=== PATIENT | female | born 1945 | race Caucasian/White ===

== ENCOUNTER → 2016-08-15 | Outpatient (CLI) | payer OTHER ==
--- NOTE | 2016-08-15 14:12 | CT ---
CT Brain (Without Contrast) at 1310 hours History: Previous infarcts, worsening dizziness, patient anticoagulated. I63.9, R42. Comparison: MRI brain March 2016 Technique: Axial computed tomographic images of the brain without contrast. Dose reduction technique s were utilized. Findings: Old lacunar infarcts in ventral aspects of bilateral thalami with mild associated [place] n degeneration of the right cerebral peduncle. No acute hemorrhage. Old linear infarct in the right c erebellar hemisphere. Ventricles, cisterns, and sulci are normal without atrophy, hydrocephalus, midl ine shift/herniation, or epidural/subdural hematomas. No acute intraparenchymal hemorrhage, definite infarct, or mass effect. Bone windows demonstrate no displaced fractures. Paranasal sinuses and masto id air cells are clear. Impression: 1. No acute hemorrhage. 2. Old bilateral thalamic lacunar infarcts and old linear infarct right cerebellar hemisphere with Wa [place]lerian degeneration of the right middle cerebral peduncle. 3. No definite acute infarct. 4.Consider MRI of the brain without and with contrast enhancement, if there is continued clinical con cern. Findings and recommendations discussed with Dr. Doug Rivera at 1400 hours today. A Document Only message has been documented for ZACH Portillo in the [employer] Critical Result system on 08/15/2016 14:08, Message ID [id number].
== END ==
LOC: FIMAGING 12:55
PROVIDERS: ATTEND Physician Assistant Medical
DX: R42 Dizziness and giddiness (principal); Z86.73 Personal history of transient ischemic attack (TIA), and cerebral infarction without residual deficits

== ENCOUNTER → 2016-08-18 | Outpatient (CLI) | payer OTHER ==
--- NOTE | 2016-08-18 13:31 | DX ---
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 There is straightening of the cervical spine between C3 and C6 with mild reversal at C2-C3, moderate narrowing of the C3-C4 disk space where there is a mild retrolisthesis, mild spondylolisthesis at C4-C5, 3 mm retrolisthesi s at C5-C6 and mild spondylolisthesis at C6-C7. There is osteoarthritic narrowing of the joint betwee n the anterior ring of C1 and the odontoid process. There is no prevertebral soft tissue swelling. Th ere is nuchal ligament ossification posterior to C5-C6 and the C7 spinous process consistent with rem ote trauma. There is osteoarthritic degenerative change of bilateral facet joints, left greater than right. The patient's head is tilted toward her left. Median sternotomy wires are present. Impression: 1. Multilevel spondylosis, superimposed upon a congenitally small neural canal. 2. Osteoarthritic changes described above.
== END ==
LOC: FIMAGING 12:35
PROVIDERS: ATTEND Internal Medicine
DX: M43.12 Spondylolisthesis, cervical region (principal)

== ENCOUNTER → 2017-02-02 | Outpatient (CLI) | payer OTHER | LOC: BMCIMAGING 14:08 | PROVIDERS: ATTEND Internal Medicine | DX: Z13.820 Encounter for screening for osteoporosis (principal); M81.0 Age-related osteoporosis without current pathological fracture | CPT/HCPCS: G0202 ==

== ENCOUNTER 2017-09-25 13:57 | Emergency (ER) | payer OTHER ==
[2017-09-25] MEDS ORDERED: NS 500 ML IV ONE (15:08)
--- NOTE | 2017-09-25 15:12 | EDPHY ---
H & P Time Seen by Provider: 09/25/17 15:08 HPI/ROS: CHIEF COMPLAINT: Exhaustion HISTORY OF PRESENT ILLNESS: This patient is an anticoagulated (Coumadin) 72 year old female with history of CVA, CAD, and mitral valve repair complaining of exhaustion for three days. She went on a trip last week and was feeling well when she returned on . Monday, she had a mild headache and nausea as well as difficulty sleeping. She did have chills but did not take her temperature. She denies cough, rhinorrhea, or other associated symptoms. Her friend at bedside endorses a lack of appetite, and the patient concurs. The patient has not had much to eat or drink for three days, and thinks she may have had about 6oz of fluid today. Currently, she is feeling better and does not have a headache or nausea. She endorses some fleeting abdominal discomfort a few days ago, now resolved. Additionally, she noted low blood pressure today, which is unusual for her. She denies any resultant deficits from her CVA other than difficulty with depth perception. She did not receive a flu shot this year. No vomiting, diarrhea, chest pain, difficulty breathing, pain in her extremities, or other associated symptoms. REVIEW OF SYSTEMS: A 10 point review of systems was performed and is negative with the exception of the elements mentioned in the history of present illness. Past Medical/Surgical History: Atrial fibrillation Coronary artery disease History of CVA one year ago Valvular heart disease with history of severe [place], s/p mitral valve repair Social History: Friend at bedside. Nonsmoker. Retired. Smoking Status: Never smoked Physical Exam: General Appearance: Alert, pleasant Eyes: Right eye deviated to right. Right pupil 4mm. Left pupil 2mm. No conjunctival pallor or injection ENT, Mouth: Mucous membranes somewhat dry Neck: Normal inspection Respiratory: Lungs are clear to auscultation Cardiovascular: Regular rate and rhythm Gastrointestinal: Abdomen is soft and non-tender Neurological: A&O, nonfocal exam Skin: Warm and dry, no rash Extremities: Nontender, no pedal edema Psychiatric: Mood and affect normal Constitutional: Initial Vital Signs Temperature (C) 36.8 C 09/25/17 14:01 Heart Rate 79 09/25/17 14:01 Respiratory Rate 18 09/25/17 14:01 Blood Pressure 98/60 L 09/25/17 14:01 O2 Sat (%) 95 03/12/18 14:01 O2 Delivery Mode Room Air Allergies/Adverse Reactions: No Known Allergies Allergy (Unverified 01/18/13 08:14) Home Medications: Medication Instructions Recorded Lexapro 09/25/17 Losartan Potassium 09/25/17 Metoprolol Succinate 09/25/17 Warfarin Sodium 09/25/17 Medical Decision Making - Diagnostics EKG Interpretation: EKG interpreted by me reveals sinus rhythm, rate 66, diffuse T wave changes. Interpretation: Abnormal EKG. T wave abnormalities are similar to prior EKG . Imaging Results: Imaging Impressions Chest X-Ray 09/25/17 16:26 Impression: 1. A few fibrotic streaks or subsegmental atelectasis is noted at the left base. Allowing for this, no active cardiopulmonary disease seen. 2. Postoperative changes from previous cardiac valve replacement.. Imaging: I viewed and interpreted images myself ED Course/Re-evaluation: 72 y/o female presents with three day history of weakness and fatigue. Exam unremarkable other than her usual neurologic deficit resultant from her CVA which presents as a dysconjugate gaze and right pupil dilation. Plan for EKG, labs including CBC, chemistries, Troponin, coag panel. Plan to administer 500mL IVF for rehydration. 16:30 Reassessed patient. She is feeling better following IVF administration. She requests a second liter of IVF, which I will provide. 1745: Continues to feel much better, asymptomatic. Ambulates with a steady gait and is not dizzy. Likely viral syndrome and dehydration. No evidence of pneumonia or urinary tract infection. Encouraged her to drink plenty of fluids at home. Return for worsening symptoms or any concerns. Differential Diagnosis: Differential diagnosis includes pyelonephritis, cholecystitis, influenza, cellulitis, pneumonia, abscess, meningitis. - Data Points Laboratory Results: Laboratory Results 09/25/17 15:52 09/25/17 15:52 09/25/17 09/25/17 09/25/17 17:24 15:52 15:52 WBC RBC Hgb Hct MCV MCH MCHC RDW Plt Count MPV Neut % (Auto) Lymph % (Auto) [place] % (Auto) Eos % (Auto) Baso % (Auto) Nucleat RBC Rel Count Absolute Neuts (auto) Absolute Lymphs (auto) Absolute Monos (auto) Absolute Eos (auto) Absolute Basos (auto) Absolute Nucleated RBC Immature Gran % Immature Gran # PT 22.2 SEC H SEC (12.0-15.0) INR 1.94 H (0.83-1.16) Sodium 141 mEq/L mEq/L (135-145) Potassium 4.5 mEq/L mEq/L (3.5-5.2) Chloride 108 mEq/L mEq/L (97-110) Carbon Dioxide 25 mEq/l mEq/l (22-31) Anion Gap 8 mEq/L mEq/L (8-16) BUN 17 mg/dL mg/dL (7-23) Creatinine 0.8 mg/dL mg/dL (0.6-1.0) Estimated GFR > 60 Glucose 121 mg/dL H mg/dL (70-100) Calcium 10.1 mg/dL mg/dL (8.5-10.4) Troponin I 0.017 ng/mL ng/mL (0.000-0.034) Urine Color YELLOW Urine Appearance HAZY Urine pH 5.0 (5.0-7.5) Ur Specific [place] 1.014 (1.002-1.030) Urine Protein NEGATIVE (NEGATIVE) Urine Ketones 1+ H (NEGATIVE) Urine Blood 2+ H (NEGATIVE) Urine Nitrate NEGATIVE (NEGATIVE) Urine Bilirubin NEGATIVE (NEGATIVE) Urine Urobilinogen NEGATIVE EU EU (0.2-1.0) Ur Leukocyte Esterase NEGATIVE (NEGATIVE) Urine RBC 15-25 /hpf H /hpf (0-3) Urine WBC 1-3 /hpf /hpf (0-3) Ur Epithelial Cells TRACE /lpf /lpf (NONE-1+) Hyaline Casts 5-15 /lpf /lpf (0-1) Urine Mucus 1+ /lpf /lpf (NONE-1+) Urine Glucose NEGATIVE (NEGATIVE) 09/25/17 15:52 WBC 8.40 10^3/uL 10^3/uL (3.80-9.50) RBC 4.91 10^6/uL 10^6/uL (4.18-5.33) Hgb 14.5 g/dL g/dL (12.6-16.3) Hct 42.9 % % (38.0-47.0) MCV 87.4 fL fL (81.5-99.8) MCH 29.5 pg pg (27.9-34.1) MCHC 33.8 g/dL g/dL (32.4-36.7) RDW 13.6 % % (11.5-15.2) Plt Count 195 10^3/uL 10^3/uL (150-400) MPV 10.0 fL fL (8.7-11.7) Neut % (Auto) 80.3 % H % (39.3-74.2) Lymph % (Auto) 8.5 % L % (15.0-45.0) [place] % (Auto) 10.4 % % (4.5-13.0) Eos % (Auto) 0.0 % L % (0.6-7.6) Baso % (Auto) 0.4 % % (0.3-1.7) Nucleat RBC Rel Count 0.0 % % (0.0-0.2) Absolute Neuts (auto) 6.76 10^3/uL H 10^3/uL (1.70-6.50) Absolute Lymphs (auto) 0.71 10^3/uL L 10^3/uL (1.00-3.00) Absolute Monos (auto) 0.87 10^3/uL H 10^3/uL (0.30-0.80) Absolute Eos (auto) 0.00 10^3/uL L 10^3/uL (0.03-0.40) Absolute Basos (auto) 0.03 10^3/uL 10^3/uL (0.02-0.10) Absolute Nucleated RBC 0.00 10^3/uL 10^3/uL (0-0.01) Immature Gran % 0.4 % % (0.0-1.1) Immature Gran # 0.03 10^3/uL 10^3/uL (0.00-0.10) PT INR Sodium Potassium Chloride Carbon Dioxide Anion Gap BUN Creatinine Estimated GFR Glucose Calcium Troponin I Urine Color Urine Appearance Urine pH Ur Specific [place] Urine Protein Urine Ketones Urine Blood Urine Nitrate Urine Bilirubin Urine Urobilinogen Ur Leukocyte Esterase Urine RBC Urine WBC Ur Epithelial Cells Hyaline Casts Urine Mucus Urine Glucose Medications Given: Discontinued Medications Sodium Chloride (Ns) 500 mls @ 1,000 mls/hr IV EDNOW ONE PRN Reason: Protocol Stop: 03/12/18 15:37 Last Admin: 09/25/17 17:44 Dose: 500 mls Sodium Chloride (Ns) 1,000 mls @ 0 mls/hr IV ONCE ONE; Wide Open PRN Reason: Protocol Stop: 09/25/17 16:30 Last Admin: 09/25/17 16:35 Dose: 1,000 mls Departure - Departure Disposition: Home, Routine, Self-Care Clinical Impression: Dehydration Condition: Good Instructions: Dehydration (ED) Additional Instructions: Follow up with your primary care provider on Monday for reevaluation. Drink plenty of fluids. Return to the emergency department for fever, chest pain, difficulty breathing, persistent vomiting, or other worsening of condition. Referrals: Nedra Condon MD [Primary Care Provider] - As per Instructions Report Scribed for: Tegan Gutiérrez Report Scribed by: Sandy Gagnon Date of Report: 09/25/17 Time of Report: 15:27 Physician Review and Approval Statement: 09/25/17 15:27 Portions of this note were transcribed by a medical support assistant. I personally performed a history, physical exam, medical decision making, and confirmed accuracy of information the transcribed note.
[2017-09-25 16:07] LABS: PLATELET COUNT 195 10^3/uL (150-400)
[2017-09-25 16:16] LABS: INR 1.94 (0.83-1.16); PROTIME(PATIENT) 22.2 SEC (12.0-15.0)
--- NOTE | 2017-09-25 16:25 | CPEKG ---
Heart Rate: 66 RR Interval: 909 P-R Interval: 171 QRSD Interval: 82 QT Interval: 464 QTC Interval: 487 P [place]: 0 QRS [place]: 46 T Wave [place]: 138 EKG Severity - ABNORMAL ECG - EKG Impression: SINUS RHYTHM EKG Impression: ABNORMAL T, CONSIDER ISCHEMIA, ANT-LAT LEADS EKG Impression: BORDERLINE PROLONGED QT INTERVAL EKG Impression: Similar to EKG dated 03/24/16 Electronically Signed By: Tegan Gutiérrez 25-Sep-2017 23:00:10
[2017-09-25] MEDS ORDERED: NS 1,000 ML IV ONE (16:29)
[2017-09-25 17:39] VITALS: RESP 16
[2017-09-25 18:01] VITALS: BP 122/72; PULSE 85; TEMP 96.8; O2SAT 97
== END 2017-09-25 18:01 | disposition home or self-care (01) ==
DX: E86.0 Dehydration (principal); I25.2 Old myocardial infarction; I25.10 Atherosclerotic heart disease of native coronary artery without angina pectoris; E86.9 Volume depletion, unspecified; Z79.01 Long term (current) use of anticoagulants; Z86.73 Personal history of transient ischemic attack (TIA), and cerebral infarction without residual deficits

== ENCOUNTER → 2018-03-16 | Outpatient (CLI) | payer OTHER | LOC: BMCIMAGING 15:13 | PROVIDERS: ATTEND Internal Medicine | DX: Z13.820 Encounter for screening for osteoporosis (principal); M81.0 Age-related osteoporosis without current pathological fracture; Z78.0 Asymptomatic menopausal state ==

== ENCOUNTER 2018-05-31 12:33 | Emergency (ER) | payer OTHER ==
[2018-05-31] MEDS ORDERED: NS 500 ML IV ONE (13:34)
--- NOTE | 2018-05-31 13:47 | EDPHY ---
H & P Time Seen by Provider: 05/31/18 13:02 HPI/ROS: HPI Confusion. Forgetfulness. 72-year-old female by private vehicle with son and [id number]. The son and daughter long report the patient has had loss of short-term memory greater than usual as well as asking repetitive questions and some generalized confusion since waking up this morning. They report that she has had this to some extent over the last 2-3 weeks but noticed it was much worse this morning. The patient has no complaints. Please see review of systems for further details. She does have a history of a CVA approximately 2 years ago. 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 Otherwise no significant residual neurologic deficits. She is on Coumadin for a mechanical mitral valve and atrial fibrillation. No new medications. ROS: Constitutional: No fever, no chills. No weakness. Eyes: No discharge. No changes in vision. ENT: No sore throat. No nasal congestion or rhinorrhea. Respiratory: No cough. No shortness of breath. Cardiac: No chest pain, no palpitations. Gastrointestinal: No abdominal pain, no vomiting, no diarrhea. Genitourinary: No hematuria. No dysuria or increased frequency with urination. Musculoskeletal: No back pain. No neck pain. No myalgias or arthralgias. Skin: No rashes. Neurological: No headache. No focal weakness or altered sensation. Past medical history: Hypertension, hysterectomy, as above. Social history: Nonsmoker. She ambulates normally and without any assistance, no alcohol. She lives with her son. Physical Exam: General Appearance: Alert, no distress. This patient is responding to questions appropriately and in full sentences. This patient appears well- hydrated and well-nourished. Head: Normocephalic atraumatic. Eyes: 3rd nerve palsy on the right, left pupil is round and reactive to light at 3-2 mm, no pallor or injection. No lid edema, erythema or injection. ENT, Mouth: Mucous membranes are moist. The pharyngeal tissues are unremarkable. No edema or swelling. No asymmetry suggestive of abscess. No erythema or exudates. Respiratory: There are no retractions, lungs are clear to auscultation with good air movement bilaterally. Cardiovascular: Regular rate and rhythm. No murmur. Gastrointestinal: Abdomen is soft and nontender, no masses, bowel sounds normal. No focal tenderness at McBurney's point. No Mcfarland sign. Neurological: Motor sensory function is grossly intact. Cranial nerves are normal except noted. Gait is normal. Cerebellar function, heel to hernández, finger to nose intact. Skin: Warm and dry, no rashes. Musculoskeletal: Neck is supple and nontender. Extremities are symmetrical. All joints range without pain or impingement. Psychiatric: No agitation. No depression. Database: EKG: EKG time is 1:08 p.m.; EKG shows a narrow complex normal sinus rhythm with a ventricular rate of 58. Atrial premature complexes noted. Subtle ST depression V2 through V6. The [place], QRS, QT intervals are within normal limits. There are no ST-T wave changes indicative of ischemic or injury pattern. No evidence of right heart strain. Interpreted by me. Imaging: CT scan of head without contrast: Age-related changes only. Results discussed with staff radiologist Dr. Nickolas Vaughn. Procedures: Emergency department course: Triage vital signs reviewed. She is mildly hypertensive. Vital signs are otherwise normal. An IV was placed. She was placed on a monitor. EKG obtained in triage and reviewed by myself. She was started on IV normal saline with 500 cc to be given over the next hour. Noncontrast CT of the brain will be obtained. Patient and family consent to workup. 2:30 p.m., the patient was re-evaluated, she is resting comfortably at this time. Repeat neurologic Assessment is nonfocal. Results of her emergency department workup were discussed with her and her son and [id number]. I did discuss admission for observation. They do not want to do this at this time. Her urinalysis showed evidence of a probable urinary tract infection. I will start her on Keflex for this. She will follow up with her primary care physician in the next 1-2 days for re-evaluation. They can easily return to the emergency department should her condition worsen. Return to emergency department precautions were thoroughly reviewed with the patient and her son. All of their questions were answered. The patient was discharged home in good condition. Differential Diagnosis: The differential diagnosis on this patient includes but is not limited to advancing dementia, transient amnesia, urinary tract infection. CVA, TIA unlikely. This represents a partial list of diagnoses considered. These considerations are based on history, physical exam, past history, reassessment and diagnostic testing. Smoking Status: Never smoked Constitutional: Initial Vital Signs Temperature (C) 36.8 C 05/31/18 12:33 Heart Rate 64 05/31/18 12:33 Respiratory Rate 18 05/31/18 12:33 Blood Pressure 135/89 H 05/31/18 12:33 O2 Sat (%) 96 05/31/18 12:33 O2 Delivery Mode Room Air Allergies/Adverse Reactions: No Known Allergies Allergy (Unverified 01/18/13 08:14) Home Medications: Medication Instructions Recorded Lexapro 09/25/17 Losartan Potassium 09/25/17 Metoprolol Succinate 09/25/17 Warfarin Sodium 09/25/17 Cephalexin [Keflex (*)] 500 mg PO Q6 5 Days cap 05/31/18 Medical Decision Making - Data Points Laboratory Results: Laboratory Results 05/31/18 13:14 05/31/18 13:14 05/31/18 05/31/18 05/31/18 14:06 13:14 13:14 WBC 5.97 10^3/uL 10^3/uL (3.80-9.50) RBC 4.73 10^6/uL 10^6/uL (4.18-5.33) Hgb 13.8 g/dL g/dL (12.6-16.3) Hct 41.1 % % (38.0-47.0) MCV 86.9 fL fL (81.5-99.8) MCH 29.2 pg pg (27.9-34.1) MCHC 33.6 g/dL g/dL (32.4-36.7) RDW 13.7 % % (11.5-15.2) Plt Count 228 10^3/uL 10^3/uL (150-400) MPV 9.8 fL fL (8.7-11.7) Neut % (Auto) 62.3 % % (39.3-74.2) Lymph % (Auto) 29.8 % % (15.0-45.0) [place] % (Auto) 6.2 % % (4.5-13.0) Eos % (Auto) 1.0 % % (0.6-7.6) Baso % (Auto) 0.5 % % (0.3-1.7) Nucleat RBC Rel Count 0.0 % % (0.0-0.2) Absolute Neuts (auto) 3.72 10^3/uL 10^3/uL (1.70-6.50) Absolute Lymphs (auto) 1.78 10^3/uL 10^3/uL (1.00-3.00) Absolute Monos (auto) 0.37 10^3/uL 10^3/uL (0.30-0.80) Absolute Eos (auto) 0.06 10^3/uL 10^3/uL (0.03-0.40) Absolute Basos (auto) 0.03 10^3/uL 10^3/uL (0.02-0.10) Absolute Nucleated RBC 0.00 10^3/uL 10^3/uL (0-0.01) Immature Gran % 0.2 % % (0.0-1.1) Immature Gran # 0.01 10^3/uL 10^3/uL (0.00-0.10) PT INR APTT Sodium 139 mEq/L mEq/L (135-145) Potassium 4.2 mEq/L mEq/L (3.3-5.0) Chloride 106 mEq/L mEq/L (97-110) Carbon Dioxide 25 mEq/l mEq/l (22-31) Anion Gap 8 mEq/L mEq/L (6-14) BUN 13 mg/dL mg/dL (7-23) Creatinine 0.8 mg/dL mg/dL (0.6-1.0) Estimated GFR > 60 Glucose 117 mg/dL H mg/dL (70-100) Calcium 10.2 mg/dL mg/dL (8.5-10.4) Total Bilirubin 1.1 mg/dL mg/dL (0.1-1.4) Conjugated Bilirubin 0.0 mg/dL mg/dL (0.0-0.5) Unconjugated Bilirubin 1.1 mg/dL mg/dL (0.0-1.1) AST 28 IU/L IU/L (14-46) ALT 32 IU/L IU/L (9-52) Alkaline Phosphatase 51 IU/L IU/L (38-126) Total Protein 6.6 g/dL g/dL (6.3-8.2) Albumin 4.0 g/dL g/dL (3.5-5.0) Urine Color YELLOW Urine Appearance HAZY Urine pH 8.0 H (5.0-7.5) Ur Specific [place] 1.009 (1.002-1.030) Urine Protein NEGATIVE (NEGATIVE) Urine Ketones NEGATIVE (NEGATIVE) Urine Blood 1+ H (NEGATIVE) Urine Nitrate NEGATIVE (NEGATIVE) Urine Bilirubin NEGATIVE (NEGATIVE) Urine Urobilinogen NEGATIVE EU EU (0.2-1.0) Ur Leukocyte Esterase 1+ H (NEGATIVE) Urine RBC 3-5 /hpf H /hpf (0-3) Urine WBC 5-10 /hpf H /hpf (0-3) Ur Epithelial Cells 1+ /lpf /lpf (NONE-1+) Urine Mucus TRACE /lpf /lpf (NONE-1+) Urine Glucose NEGATIVE (NEGATIVE) Salicylates < 1.0 mg/dL L mg/dL (2.0-20.0) Ethyl Alcohol < 10 mg/dL mg/dL (0-10) 05/31/18 13:04 WBC RBC Hgb Hct MCV MCH MCHC RDW Plt Count MPV Neut % (Auto) Lymph % (Auto) [place] % (Auto) Eos % (Auto) Baso % (Auto) Nucleat RBC Rel Count Absolute Neuts (auto) Absolute Lymphs (auto) Absolute Monos (auto) Absolute Eos (auto) Absolute Basos (auto) Absolute Nucleated RBC Immature Gran % Immature Gran # PT 29.3 SEC H SEC (12.0-15.0) INR 2.79 H (0.83-1.16) APTT 39.4 SEC H SEC (23.0-38.0) Sodium Potassium Chloride Carbon Dioxide Anion Gap BUN Creatinine Estimated GFR Glucose Calcium Total Bilirubin Conjugated Bilirubin Unconjugated Bilirubin AST ALT Alkaline Phosphatase Total Protein Albumin Urine Color Urine Appearance Urine pH Ur Specific [place] Urine Protein Urine Ketones Urine Blood Urine Nitrate Urine Bilirubin Urine Urobilinogen Ur Leukocyte Esterase Urine RBC Urine WBC Ur Epithelial Cells Urine Mucus Urine Glucose Salicylates Ethyl Alcohol Medications Given: Discontinued Medications Sodium Chloride (Ns) 500 mls @ 0 mls/hr IV ONCE ONE; Wide Open PRN Reason: Protocol Stop: 05/31/18 13:35 Last Admin: 05/31/18 13:51 Dose: 500 mls Departure - Departure Disposition: Home, Routine, Self-Care Clinical Impression: Forgetfulness, Urinary tract infection Condition: Good Instructions: Mild Cognitive Impairment: New Diagnosis (DC), Urinary Tract Infection in Women (ED) Additional Instructions: Read and follow provided instructions. Follow-up with your primary care physician in 1-2 days for re-evaluation as discussed. Take antibiotic as prescribed for treatment of urinary tract infection. Eat regular meals. Keep well hydrated. Return to the emergency department for worsening symptoms, any new weakness or loss of sensation in her extremities, difficulty speaking or other serious concerns. Referrals: Nedra Condon MD [Primary Care Provider] - As per Instructions Prescriptions: Cephalexin [Keflex (*)] 500 mg PO Q6 5 Days cap
[2018-05-31 13:49] LABS: PLATELET COUNT 228 10^3/uL (150-400)
[2018-05-31 13:49] LABS: INR 2.79 (0.83-1.16); PROTIME(PATIENT) 29.3 SEC (12.0-15.0)
[2018-05-31 14:46] VITALS: BP 126/61
--- NOTE | 2018-05-31 16:10 | CPEKG ---
Test Reason : OPEN Blood Pressure : / mmHG Vent. Rate : 058 BPM Atrial Rate : 058 BPM P-R Int : 200 ms QRS Dur : 096 ms QT Int : 468 ms P-R-T Axes : 101 051 026 degrees QTc Int : 460 ms Sinus rhythm Atrial premature complexes Borderline ST depression, anterolateral leads Confirmed by Frank Fernandez ([id number]) on 05/31/2018 4:09:49 PM Referred By: Confirmed By:Frank Fernandez
== END 2018-05-31 14:57 | disposition home or self-care (01) ==
DX: R41.0 Disorientation, unspecified (principal); G31.84 Mild cognitive impairment of uncertain or unknown etiology; I10 Essential (primary) hypertension; E86.9 Volume depletion, unspecified
CPT/HCPCS: G0480

== ENCOUNTER 2018-06-19 15:08 | Emergency (ER) | payer OTHER ==
--- NOTE | 2018-06-19 15:42 | EDPHY ---
H & P Time Seen by Provider: 06/19/18 15:23 HPI/ROS: HPI Mechanical fall. Left arm injury. 73-year-old female by private vehicle with family. This patient tripped on a crack in the curb, she landed awkwardly on her left arm. She is on Coumadin. She does not think she hit her head. She complains of isolated pain to the proximal aspect of the left arm with any movement active or passive. She denies any loss of sensation or weakness distally. She otherwise has no complaints. ROS: Constitutional: No fever, no chills. No weakness. Eyes: No discharge. No changes in vision. ENT: No sore throat. No nasal congestion or rhinorrhea. Respiratory: No cough. No shortness of breath. Cardiac: No chest pain, no palpitations. Gastrointestinal: No abdominal pain, no vomiting, no diarrhea. Genitourinary: No hematuria. No dysuria or increased frequency with urination. Musculoskeletal: No back pain. No neck pain. As above. Skin: No rashes. Neurological: No headache. No focal weakness or altered sensation. Past medical history: Heart surgery, mitral valve replacement, atrial fibrillation, hypertension, hysterectomy, CVA December of 2015. Social history: Nonsmoker. No alcohol. Here with family. Physical Exam: General Appearance: Alert, no distress. This patient is responding to questions appropriately and in full sentences. This patient appears well- hydrated and well-nourished. Head: Normocephalic atraumatic. Face: Facial bones are stable on palpation. Eyes: Right eye deviated to the right. Right pupil is 4 mm. Left pupil is 2 mm. Both are minimally reactive to direct light and consensual, no pallor or injection. Mild right upper lid ptosis. No lid erythema or edema. ENT, Mouth: Mucous membranes moist. Dentition is intact. No malocclusion of the jaw. No tongue lacerations or abrasions. Pharynx is clear. The bilateral nasal canals are clear. No septal hematoma. Respiratory: There are no retractions, lungs are clear to auscultation with good air movement bilaterally. Chest wall is stable to AP and lateral palpation. Cardiovascular: Regular rate and rhythm. No murmur. Gastrointestinal: Abdomen is soft and nontender, no masses, bowel sounds normal. Neurological: Motor sensory function is intact. Cranial nerves are normal. Cerebellar function intact. Skin: Warm and dry, no rashes. No lacerations, abrasions or contusions. Musculoskeletal: Neck is supple and nontender. The trachea is midline. No midline cervical, thoracic, lumbar or sacral tenderness on palpation. No flank tenderness on palpation. Tenderness on palpation of the left proximal humerus. The skin is intact. The clinic no humeral joint clinically appears intact. The left upper extremity is neurovascularly intact. The Extremities are symmetrical, full range of motion except noted. All joints in the bilateral upper and bilateral lower extremities range without pain or impingement except. No tenderness on palpation of the long bones in the bilateral upper and bilateral lower extremities except noted. Psychiatric: No agitation. No depression. Database: EKG: Imaging: CT head without contrast: Negative for acute pathology. No bleeding. Results were discussed with staff radiologist Dr. Richard Bess. Left humerus and shoulder x-ray series: Proximal humerus fracture at the anatomical neck with minimal displacement. The glenohumeral joint appears intact. Interpreted by me. Procedures: Emergency department course: Triage vital signs reviewed and are normal. I findings as noted above are a result of her prior CVA. These findings are documented on previous notes from visit to our emergency department and hospital. Please see the note from Dr. Tegan Gutiérrez on September [id number]. Patient is unclear if she hit her head. She is on Coumadin. She consents to CT imaging of her brain. Plain film x-rays of the left upper extremity to be obtained. 4:45 p.m., the patient was re-evaluated. Results of CT and x-ray discussed with her and family. Diagnosis of left proximal humerus fracture discussed. The left upper extremity is neurovascularly intact. She is currently in a sling and is reasonably comfortable with this. I discussed pain medication. We will have her follow up with Orthopedics, Dr. Albrecht, in the next couple of days for re-evaluation and further management. She and family are in agreement with this plan. Return to emergency department precautions reviewed with them. All of their questions were answered. The patient was discharged in good condition with family. Differential Diagnosis: The differential diagnosis on this patient includes but is not limited to fracture to the left proximal humerus. Traumatic subarachnoid hemorrhage, epidural hematoma, subdural hematoma, acute CVA, other significant traumatic injury the noted unlikely. This represents a partial list of diagnoses considered. These considerations are based on history, physical exam, past history, reassessment and diagnostic testing. Smoking Status: Never smoked Constitutional: Initial Vital Signs Temperature (C) 36.6 C 06/19/18 15:13 Heart Rate 54 L 06/19/18 15:13 Respiratory Rate 20 06/19/18 15:13 Blood Pressure 123/48 H 06/19/18 15:13 O2 Sat (%) 96 06/19/18 15:13 O2 Delivery Mode Room Air Allergies/Adverse Reactions: No Known Allergies Allergy (Unverified 06/19/18 15:15) Home Medications: Medication Instructions Recorded Lexapro 09/25/17 Losartan Potassium 09/25/17 Metoprolol Succinate 09/25/17 Warfarin Sodium 09/25/17 Cephalexin [Keflex (*)] 500 mg PO Q6 5 Days cap 05/31/18 Docusate Sodium [Colace 100 MG (*)] 100 mg PO TID #20 cap 06/19/18 Hydrocodone/APAP 5/325 [[place] 1 - 2 tab PO Q4-6PRN PRN #20 tab 06/19/18 5/325 (*)] Medical Decision Making - Diagnostics Imaging Results: Imaging Impressions Head CT 06/19/18 15:38 Impression: 1. Old bilateral basal ganglia, thalamic, and right cerebellar lacunar infarcts. 2. No acute hemorrhage, hydrocephalus, or mass effect. 3. Cerebrovascular atherosclerosis. 4. No definite acute infarct. 5. Mild cerebral atrophy. 6. No skull fracture. 7. No epidural or subdural hematoma. Findings and recommendations discussed with Emergency Department physician, Cassius Thayer M.D., at 1602 hours, on June 19, 2018. Final report concurs with initial preliminary interpretation. Departure - Departure Disposition: Home, Routine, Self-Care Clinical Impression: Fall from ground level, Fracture of humerus, proximal, left, closed Condition: Good Instructions: Arm Fracture in Adults (ED) Additional Instructions: Read and follow provided instructions. Follow-up with Dr. Albrecht or 1 of his partners with the orthopedic service for re- evaluation and further management as discussed in the next 2-3 days. Call his office tomorrow morning for appointment time. I discussed your case and injury with him in the emergency department tonight. Take medication as prescribed for pain. 1-2 every 4-6 hours as needed for pain. Take stool softeners as prescribed to avoid constipation. Return to the emergency department for worsening or uncontrolled pain, any loss of sensation or weakness in your hand, any significant discoloration or swelling or other serious concerns. Referrals: Contreras Albrecht MD [Medical Doctor] - As per Instructions Prescriptions: Docusate Sodium [Colace 100 MG (*)] 100 mg PO TID #20 cap Hydrocodone/APAP 5/325 [[place] 5/325 (*)] 1 - 2 tab PO Q4-6PRN PRN #20 tab PRN Reason: Pain, Moderate
[2018-06-19 17:00] VITALS: BP 130/75
== END 2018-06-19 17:01 | disposition home or self-care (01) ==
DX: S42.202A Unspecified fracture of upper end of left humerus, initial encounter for closed fracture (principal); Z79.01 Long term (current) use of anticoagulants; W01.0XXA Fall on same level from slipping, tripping and stumbling without subsequent striking against object, initial encounter; Y92.480 Sidewalk as the place of occurrence of the external cause; Y93.9 Activity, unspecified; Y99.9 Unspecified external cause status

== ENCOUNTER → 2018-06-28 | Outpatient (CLI) | payer OTHER | LOC: BMCIMAGING 08:37 | PROVIDERS: ATTEND Physician Assistant | DX: S42.322D Displaced transverse fracture of shaft of humerus, left arm, subsequent encounter for fracture with routine healing (principal) ==

== ENCOUNTER → 2018-07-26 | Outpatient (CLI) | payer OTHER | LOC: BMCIMAGING 09:51 | PROVIDERS: ATTEND Physician Assistant | DX: S42.215D Unspecified nondisplaced fracture of surgical neck of left humerus, subsequent encounter for fracture with routine healing (principal) ==